=== PATIENT | female | born 2000 | race Caucasian/White ===

== ENCOUNTER 2024-01-28 16:00 | Day surgery (SDC) | payer OTHER ==
[2024-01-28 17:12] VITALS: BMI 29.2
[2024-01-28 17:25] LABS: Bilirubin Neg (Negative); Blood, Urine Negative (Negative); Clarity Clear (Clear); Glucose, Urine (Dipstick) Normal (Negative); Ketone, Urine Negative (Negative); Leukocyte Negative (Negative); Nitrite Negative (Negative); Protein, Urine (Dipstick) Negative (Neg-Trace); Urobilinogen Normal mg/dL (Less than 2)
[2024-01-28 17:48] LABS: Bacteria/HPF Rare-Few HPF (None Seen); CAUTI Indications for Culture Pregnancy; RBC/HPF None Seen HPF (0-3); Squamous Epithelial 0-3 HPF (0-3); Transitional Epithelial 0-3 HPF (None Seen); Urine Culture Reflex Yes Yes; WBC/HPF 0-3 HPF (0-3)
== END 2024-01-28 23:00 | disposition home or self-care (01) ==
LOC: CSHLD/OP 16:00
PROVIDERS: ATTEND Family Medicine
DX: O47.03 False labor before 37 completed weeks of gestation, third trimester (principal); O99.333 Smoking (tobacco) complicating pregnancy, third trimester; F17.290 Nicotine dependence, other tobacco product, uncomplicated; O99.313 Alcohol use complicating pregnancy, third trimester; F10.10 Alcohol abuse, uncomplicated; Z87.59 Personal history of other complications of pregnancy, childbirth and the puerperium; Z3A.37 37 weeks gestation of pregnancy
CPT/HCPCS: 76815; 81001; 87086; 99283; 99285

== ENCOUNTER 2025-03-19 17:50 | Day surgery (SDC) | payer OTHER ==
[2025-03-19] MEDS ORDERED: hydrALAZINE 20 MG/ML VIAL SLOW IVP PRN (18:29)
[2025-03-19 18:31] VITALS: BMI 31.3
== END 2025-03-19 21:15 | disposition home or self-care (01) ==
LOC: CSHLD/OP 17:50
PROVIDERS: ATTEND Family Medicine
DX: O47.1 False labor at or after 37 completed weeks of gestation (principal); O09.43 Supervision of pregnancy with grand multiparity, third trimester; O99.013 Anemia complicating pregnancy, third trimester; D50.9 Iron deficiency anemia, unspecified; O98.813 Other maternal infectious and parasitic diseases complicating pregnancy, third trimester; B95.1 Streptococcus, group B, as the cause of diseases classified elsewhere; Z3A.37 37 weeks gestation of pregnancy; Z67.40 Type O blood, Rh positive; Z87.891 Personal history of nicotine dependence; Z79.899 Other long term (current) drug therapy
CPT/HCPCS: 99283

== ENCOUNTER 2025-04-06 16:05 | Inpatient (IN) | payer OTHER ==
[2025-04-06] MEDS ORDERED: hydrALAZINE 20 MG/ML VIAL SLOW IVP PRN (16:46)
[2025-04-06] MEDS ORDERED: HYDROcodone/Acetaminophen 5/325 mg Tablet PO PRN (16:46)
[2025-04-06] MEDS ORDERED: Ondansetron PF 4 MG/2 ML Vial IVP PRN ×2 (16:46→22:16)
[2025-04-06] MEDS ORDERED: Lidocaine 1% (PF) 30 ML VIAL SC PRN (16:46)
[2025-04-06] MEDS ORDERED: Diphenoxylate HCl/Atropine Tablet PO PRN ×2 (16:46)
[2025-04-06] MEDS ORDERED: Tranexamic Acid 1,000 MG/10 ML VIAL IVP PRN (16:46)
[2025-04-06] MEDS ORDERED: Methylergonovine 0.2 MG/ML VIAL IM PRN (16:46)
[2025-04-06] MEDS ORDERED: Carboprost 250 MCG/ML AMP IM PRN (16:46)
[2025-04-06] MEDS ORDERED: Oxytocin 30 units/NS 500 ML 500 ML IV SCH (17:00)
[2025-04-06 17:07] VITALS: BMI 31.1
[2025-04-06 18:38] LABS: Hematocrit 33.0 % (34.9-44.5); Hemoglobin 9.7 g/dL (12.0-15.5); Mean Corpuscular Hemoglobin 21.2 pg (27.0-33.0); Mean Corpuscular Volume 72.1 fL (81.6-98.3); Platelet Count 269 10x3/uL (150-450); Red Blood Cell (RBC) Count 4.58 10x6/uL (3.90-5.03); White Blood Cell (WBC) Count 8.80 10x3/uL (3.5-10.5)
[2025-04-06 20:46] LABS: Syphilis Antibody Index 0.08 S/CO (<1.00 Non-Reactive)
[2025-04-06 20:50] LABS: Hep B Surf Ag - L&D Non-Reactive S/CO (NonReactive)
[2025-04-06] MEDS: fentaNYL/Ropivacaine Epidural 100 ML ONE (21:57)
[2025-04-06] MEDS ORDERED: diphenhydrAMINE 50 MG/ML VIAL IVP PRN (22:16)
[2025-04-06] MEDS ORDERED: Acetaminophen 325 MG TAB PO PRN (22:16)
[2025-04-06] MEDS ORDERED: Communication Order-Pharmacy FS SCH (22:30)
[2025-04-06] MEDS ORDERED: fentaNYL 2 mcg/Ropivacaine 0.2% Epidural 100 ML CADD EPIDURAL SCH (22:30)
[2025-04-06] MEDS: Oxytocin 30 units/NS 500 ML 500 ML IV SCH (23:14)
[2025-04-07] MEDS ORDERED: Preparation H Ointment 28 GM TUBE PR PRN (03:15)
[2025-04-07] MEDS ORDERED: Lanolin Ointment 7 GM TUBE TOP PRN (03:15)
[2025-04-07] MEDS ORDERED: hydrALAZINE 20 MG/ML VIAL SLOW IVP PRN (03:15)
[2025-04-07] MEDS ORDERED: Methylergonovine 0.2 MG/ML VIAL IM PRN (03:15)
[2025-04-07] MEDS ORDERED: Bisacodyl 10 MG SUPP PR PRN (03:15)
[2025-04-07] MEDS ORDERED: Milk Of Magnesia 30 ML UDCUP PO PRN (03:15)
[2025-04-07] MEDS ORDERED: Oxytocin 30 units/NS 500 ML 500 ML IV SCH (03:15)
[2025-04-07] MEDS: Ibuprofen 800 MG TAB PO PRN (03:42)
[2025-04-07] MEDS: Oxytocin 30 units/NS 500 ML 500 ML IV SCH (04:51)
[2025-04-07] MEDS: Boostrix 0.5 ML (Tdap) VIAL (>/=7 yrs of age) IM ONE (08:16)
[2025-04-07] MEDS: Ferrous Sulfate 325 MG TAB PO SCH (08:16)
[2025-04-07] MEDS: Ibuprofen 800 MG TAB PO SCH (12:12)
[2025-04-07] MEDS: HYDROcodone/Acetaminophen 5/325 mg Tablet PO SCH (15:24)
[2025-04-07] MEDS ORDERED: Bupivacaine 0.25% HCL 30 ML VIAL ONE (19:24)
[2025-04-08 07:28] VITALS: BP 110/68; TEMP 98
== END 2025-04-08 15:30 | disposition home or self-care (01) | DRG 807 ==
LOC: CSHLD 16:05 → EEVIPCON 16:05 → CSHLD 20:31 → CSHPED 04-07 05:10
PROVIDERS: ADMIT Family Medicine; ATTEND Family Medicine
DX: O48.0 Post-term pregnancy (principal); Z37.0 Single live birth; Z3A.40 40 weeks gestation of pregnancy; O99.824 Streptococcus B carrier state complicating childbirth; D64.9 Anemia, unspecified; O99.02 Anemia complicating childbirth
CPT/HCPCS: 51702; 85027; 86780; 86850; 86900; 86901; 87340; J0665; J2590